=== PATIENT | male | born 1995 | race Caucasian/White ===

== ENCOUNTER 2017-09-23 18:54 | Emergency (ER) | payer OTHER ==
[2017-09-23 19:39] VITALS: BP 149/95
[2017-09-23] MEDS ORDERED: Amoxicillin PO (*) 500 MG CAP PO ONE ×2 (20:03)
[2017-09-23] MEDS ORDERED: HYDROcodone/ACETAMIN 5-325 MG* 1 TAB PO ONE (20:03)
--- NOTE | 2017-09-23 20:11 | UC ---
Dental HPI - HPI Summary HPI Summary: first molar on right bottom is broken to the gum line---painful red and swollen gum has a dentist appointment for September - History of Current Complaint Chief Complaint: UCDentalProblem Stated Complaint: DENTAL Time Seen by Provider: 09/23/17 19:55 Hx Obtained From: Patient Onset/Duration: Gradual Onset, Lasting Days, Still Present Severity: Severe Pain Intensity: 10 Pain Scale Used: 0-10 Numeric Aggravating Factor(s): Heat, Cold, Chewing Alleviating Factor(s): Nothing Related History: Previous Dental Care on Same Tooth, Swelling - Allergies/Home Medications Allergies/Adverse Reactions: Allergies Allergy/AdvReac Type Severity Reaction Status Date / Time No Known Allergies Allergy Verified 09/23/17 20:06 PMH/Surg Hx/FS Hx/Imm Hx Previously Healthy: Yes - Surgical History Surgical History: Yes Surgery Procedure, Year, and Place: right inguinal hernai repair - Family History Known Family History: Positive: None - Social History Occupation: Employed Full-time Lives: With Family Alcohol Use: None Substance Use Type: None Smoking Status (MU): Never Smoked Tobacco Review of Systems Constitutional: Negative Skin: Negative Eyes: Negative ENT: Dental Pain Respiratory: Negative Cardiovascular: Negative Gastrointestinal: Negative Genitourinary: Negative Motor: Negative Neurovascular: Negative Musculoskeletal: Negative Neurological: Negative Psychological: Negative Is Patient Immunocompromised?: No All Other Systems Reviewed And Are Negative: Yes Physical Exam Triage Information Reviewed: Yes Appearance: Well-Appearing, Well-Nourished, Pain Distress Vital Signs: Initial Vital Signs Temp 99.3 F 09/23/17 19:37 Pulse 72 09/23/17 19:37 Resp 14 09/23/17 19:37 BP 149/95 09/23/17 19:37 Pulse Ox 100 09/23/17 19:37 Vital Signs Reviewed: Yes Eye Exam: Normal Eyes: Positive: Conjunctiva Clear ENT Exam: Normal ENT: Positive: Normal ENT inspection, Hearing grossly normal, Pharynx normal, TMs normal, Uvula midline. Negative: Nasal congestion, Tonsillar swelling, Tonsillar exudate, Trismus, Muffled voice, Hoarse voice, Dental tenderness Dental Exam: Other - 1st right lower molar Dental: Positive: Percussion Tenderness @, Dental Fracture @, Abscess @ Neck exam: Normal Neck: Positive: Supple, Nontender Respiratory Exam: Normal Respiratory: Positive: Chest non-tender, Lungs clear, Normal breath sounds, No respiratory distress, No accessory muscle use Cardiovascular Exam: Normal Cardiovascular: Positive: RRR, No Murmur, Pulses Normal, Brisk Capillary Refill Musculoskeletal Exam: Normal Musculoskeletal: Positive: Strength Intact, ROM Intact, No Edema Neurological Exam: Normal Neurological: Positive: Alert, Muscle Tone Normal Psychological Exam: Normal Psychological: Positive: Normal Response To Family, Age Appropriate Behavior Skin Exam: Normal Skin: Positive: rashes Dental Complaint Course/Dx - Course Course Of Treatment: hydrocodone, ibuprofen, amoxicillin, follow with dentist as planned - Differential Dx/Diagnosis Provider Diagnoses: dentist abscess-right lower jaw 1st right lower molar broken Discharge - Sign-Out/Discharge Documenting (check all that apply): Discharge - Discharge Plan Condition: Stable Disposition: HOME Prescriptions: Amoxicillin PO (*) [Amoxicillin 500 MG CAP*] 500 mg PO TID #28 cap Patient Education Materials: Dental Abscess (ED), Toothache (ED) Referrals: No Primary Care Phys,NOPCP [Primary Care Provider] - Additional Instructions: Follow with dentist on Monday ( 09/27/17 ) as planned - Billing Disposition and Condition Condition: STABLE Disposition: HOME
== END 2017-09-23 20:25 | disposition home or self-care (01) ==
LOC: UCCORT 18:54
DX: K04.7 Periapical abscess without sinus (principal); K03.81 Cracked tooth
CPT/HCPCS: 99203; A9270-GY; G0463

== ENCOUNTER 2017-10-11 20:08 | Emergency (ER) | payer OTHER ==
[2017-10-11 20:23] VITALS: BP 149/99
[2017-10-11] MEDS ORDERED: predniSONE TAB* 20 MG PO ONE (20:29)
--- NOTE | 2017-10-11 20:38 | UC ---
Throat Pain/Nasal Anthony HPI - HPI Summary HPI Summary: 22 yo male with sore throat x 3 days ? fever now with rash on ankles and wrists very pruritic no cp or sob took aleve - History of Current Complaint Chief Complaint: UCAllergicReaction Stated Complaint: RASH,POSSIBLE ALLERGIC REACTION Time Seen by Provider: 10/11/17 20:19 Hx Obtained From: Patient Onset/Duration: Gradual Onset, Lasting Days Severity: Moderate Pain Intensity: 7 Pain Scale Used: 0-10 Numeric Associated Signs & Symptoms: Positive: Dysphagia - Epiglottits Risk Factors Epiglottis Risk Factors: Negative - Allergies/Home Medications Allergies/Adverse Reactions: Allergies Allergy/AdvReac Type Severity Reaction Status Date / Time No Known Allergies Allergy Verified 10/11/17 20:18 Home Medications: Home Medications NK [No Home Medications Reported] 10/11/17 [History Confirmed 10/11/17] PMH/Surg Hx/FS Hx/Imm Hx Previously Healthy: Yes - Surgical History Surgical History: Yes Surgery Procedure, Year, and Place: right inguinal hernai repair - Family History Known Family History: Positive: None - Social History Alcohol Use: None Substance Use Type: None Smoking Status (MU): Never Smoked Tobacco Review of Systems Constitutional: Fever Skin: Rash Eyes: Negative ENT: Sore Throat Respiratory: Negative Cardiovascular: Negative Gastrointestinal: Negative Genitourinary: Negative Motor: Negative Neurovascular: Negative Musculoskeletal: Negative Neurological: Negative Psychological: Negative Is Patient Immunocompromised?: No All Other Systems Reviewed And Are Negative: Yes Physical Exam Triage Information Reviewed: Yes Appearance: Well-Appearing, No Pain Distress, Well-Nourished Vital Signs: Initial Vital Signs Temp 98.7 F 10/11/17 20:19 Pulse 71 10/11/17 20:19 Resp 20 10/11/17 20:19 BP 149/99 10/11/17 20:19 Pulse Ox 99 10/11/17 20:19 Vital Signs Reviewed: Yes Eyes: Positive: Conjunctiva Clear ENT: Positive: Pharyngeal erythema. Negative: Nasal congestion, Nasal drainage , Muffled voice, Hoarse voice Neck: Positive: Supple, Nontender, No Lymphadenopathy Respiratory: Positive: Lungs clear, Normal breath sounds, No respiratory distress, No accessory muscle use Cardiovascular: Positive: RRR, No Murmur Musculoskeletal: Positive: ROM Intact Neurological: Positive: Alert Skin Exam: Other - c/w contact derm on wrists and ankles Diagnostics - Laboratory Diagnostic Studies Completed/Ordered: strep (-) Throat Pain/Nasal Course/Dx - Differential Dx/Diagnosis Provider Diagnoses: pharyngitis. contact dermatitis Discharge - Sign-Out/Discharge Documenting (check all that apply): Discharge - Discharge Plan Condition: Stable Disposition: HOME Patient Education Materials: Cortisone (Injection), Contact Dermatitis (ED), Pharyngitis (ED) Referrals: No Primary Care Phys,NOPCP [Primary Care Provider] - Additional Instructions: recheck in 3-4 days if not better recheck sooner for worsening symptoms - Billing Disposition and Condition Condition: STABLE Disposition: HOME
[2017-10-11] MEDS ORDERED: Triamcinolone Acetonide* 40 MG/ML 1 ML VIAL IM ONE (21:06)
[2017-10-11] MEDS ORDERED: hydrOXYzine HCL TAB* 25 MG PO ONE (21:07)
== END 2017-10-11 21:46 | disposition home or self-care (01) ==
LOC: UCCORT 20:08
DX: J02.9 Acute pharyngitis, unspecified (principal); L25.9 Unspecified contact dermatitis, unspecified cause
CPT/HCPCS: 87651; 96372; 99212; A9270-GY; G0463; J3301; J7512